=== PATIENT | male | born 1980 | race Caucasian/White ===

== ENCOUNTER 2025-06-19 08:23 | Day surgery (SDC) | payer BC ==
--- NOTE | 2025-06-16 14:16 | ELECTROCARDIOGRAPH REPORT ---
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 CHRISTINE Dykes Measurements Intervals [place] Rate: 69 P: 32 ND: 173 QRS: 41 QRSD: 108 T: 49 QT: 362 QTc: 388 Interpretive Statements Sinus rhythm Electronically Signed On 06-16-2025 16:46:[address] CHRISTINE Dykes Please click the below link to view image of tracing.
[2025-06-16 14:25] LABS: MEAN PLATELET VOLUME 7.9 FL (7.4-10.4); RED CELL DISTRIBUTION WIDTH 13.3 % (11.5-14.5)
[2025-06-16 14:45] LABS: CREATININE 1.12 MG/DL (0.60-1.10); TOTAL CARBON DIOXIDE 31.8 MMOL/L (24-32); eGFR 71 ML/MIN
[~2025-06-19] VITALS: Ht 180.3 cm; Wt 97.4 kg
[2025-06-19] VITALS (12 sets, daily range): BP systolic 130–145; BP diastolic 81–100; PULSE 64–96; RESP 10–18; TEMP 98.1; O2SAT 98–100
[2025-06-19] MEDS: clindamycin-Cleocin 900mg/D5W 50 ML IV ONE (05:30)
[~2025-06-19 08:23] MED LIST: CALC625T31 PO; CETI10TA14 PO; CHOL100025 PO; GENTAMICIN IV ONE; MULTIVITAMIN; NORMAL SALINE IV ONE; SEMA2.4P SQ; [UNRECOGNIZED DRUG - OTHER]
[2025-06-19] MEDS: ringers solution, lacted 1,000 ML IV SCH ×2 (09:01→14:21)
[2025-06-19] MEDS ORDERED: BUPIVAcaine 0.5% inj/PF 60 ML ONE (10:25)
[2025-06-19] MEDS ORDERED: LIDOcaine 1% 30ml preserv. free vial ONE (10:25)
[2025-06-19] MEDS ORDERED: BUPIVACAINE liposomal/PF 13.3 MG/ML 10mL vial IM ONE (10:25)
[2025-06-19] MEDS ORDERED: fentaNYL/PF 50MCG/1 ML 2ML syringe ONE (11:21)
[2025-06-19] MEDS ORDERED: propofol inj 20 ML IV ONE (11:22)
[2025-06-19] MEDS ORDERED: midazolam 1 mg/ML 2ml injection ONE (11:22)
[2025-06-19] MEDS ORDERED: rocuronium 10mg/ml inj IV ONE (11:23)
[2025-06-19] MEDS: BUPIVAcaine 0.5% inj/PF 30 ml vial IJ ONE (12:14)
[2025-06-19] MEDS ORDERED: hydrALAZINE 20mg/ml inj. IV PRN (12:15)
[2025-06-19] MEDS ORDERED: ondansetron/PF 4mg/2ml inj IV PRN (12:15)
[2025-06-19] MEDS ORDERED: morphine 4 MG/ML inj SYRINge IV PRN (12:15)
[2025-06-19] MEDS ORDERED: acetaminophen 1,000mg/100ml IV 100 ML IV PRN (12:15)
[2025-06-19] MEDS ORDERED: HYDROmorphone/PF 0.2 MG/ML SYRINGE IV PRN ×2 (12:15)
[2025-06-19] MEDS ORDERED: labetalol 20mg/4ml (5mg/ml) syringe IV PRN (12:15)
[2025-06-19] MEDS ORDERED: dexamethasone sod phosphate 4mg/ml inj. ONE (12:44)
[2025-06-19] MEDS ORDERED: ondansetron/PF 4mg/2ml inj ONE (12:45)
[2025-06-19] MEDS ORDERED: glycopyrrolate 0.2mg/ml inj ONE (12:47)
--- NOTE | 2025-06-19 13:49 | OPERATIVE REPORT ---
Operative Report Providers to CC CC: JOSEPH RICARDO MD ~ Date of Procedure: Jun 19, 2025 Pre-Operative Diagnosis: Umbilical hernia Post-Operative Diagnosis 5 cm incarcerated umbilical hernia Procedure Performed Robotic assisted, laparoscopic 5 cm incarcerated umbilical hernia repair with mesh Bilateral transversus abdominis plane nerve blocks by injection using 266 mg of Exparel Surgeon: Joseph Ricardo MD FACS [employer] None Anesthesiologist: Mayito Wiley Type of Anesthesia: General Findings: 2 cm ventral hernia with incarcerated omentum 3 cm umbilical hernia with a large amount of incarcerated omentum and massive associated hernia sac Wound class I Complications None Prosthetics\Implants used: 15 cm round diameter coated polyester mesh Estimated Blood Loss: Minimal Specimen Removed: None Description of Procedure: Patient was brought to the operating room and identified by the nursing staff and the attending physician. Patient was placed supine and a general anesthesia was induced. Preoperative antibiotics were given. The abdomen was prepped and draped in the standard sterile fashion. Through a left subcostal stab incision the abdomen was accessed with a Veress needle technique. Abdomen was insufflated without incident. The incision was lengthened to accommodate a 12 mm optical trocar and the abdomen was entered under laparoscopic visualization. The abdomen was surveyed laparoscopically. Omentum was tented up to the anterior abdominal wall and herniated through a fascial defect at the level of the umbilicus. Multiple attempts at reducing this were unsuccessful consistent with incarcerated state. Under laparoscopic visualization, robotic trochars were placed in the left lateral and left lower quadrant. The da Ct robotic arm was docked to the p atient and instruments guided intra-abdominally under laparoscopic visualization. About 25 minutes was spent mobilizing omentum that was incarcerated through two separate fascial defects. Above the umbilicus, there was a 2 cm fascial defect with a moderate amount of herniated and incarcerated omentum. Below this was a 3 cm fascial defect with a massive amount of inca rcerated omentum and very, very large associated hernia sac. I was able to completely mobilize and reduce all of the incarcerated tissue. Fascial defects measured a total of 5 cm in diameter. Fascial edges were freshened. Fascial defect(s) were then reapproximated with running, absorbable, 0V lock suture. Good fascial apposition was obtained without significant tension. Hernia sac was included in the repair to obliterate the space. A coated polyester mesh was then fixed to the anterior abdominal wall with running, absorbable, 2/0, V lock suture. Mesh laid without wrinkles or folds. The mesh measured 15 cm in diameter The da Ct instruments were then removed and the robot undocked from the patient. Bilateral transversus abdominis plane nerve blocks by injection were then placed under laparoscopic visualization using a combination of Marcaine and 266 mg of Exparel. The left subcostal trocar was removed and its fascia closed percutaneously with 0 Vicryl suture under laparoscopic visualization. Remaining trochars were removed after the abdomen was allowed to deflate. Skin was closed at all sites with 4-0 Monocryl sutures and dressed with sterile dressings. Patient was awakened and taken to the postanesthesia care unit in stable condit ion. Counts repoted as correct: Yes JOSEPH RICARDO MD Jun 19, 2025 13:49
[2025-06-19] MEDS: ketorolac trometh 30MG/ML vial 30 MG/ML VIAL IV ONE (14:20)
[2025-06-19] MEDS: oxyCODONE/APAP 5-325mg tablet PO PRN (14:20)
== END 2025-06-19 14:58 | disposition home or self-care (01) ==
LOC: PAS 08:23
PROVIDERS: ATTEND Surgery
DX: K42.0 Umbilical hernia with obstruction, without gangrene (principal); K43.6 Other and unspecified ventral hernia with obstruction, without gangrene; Z79.899 Other long term (current) drug therapy; I10 Essential (primary) hypertension; Z88.0 Allergy status to penicillin; Z86.14 Personal history of Methicillin resistant Staphylococcus aureus infection; Z98.890 Other specified postprocedural states
CPT/HCPCS: 36415; 49594; 64488; 80053; 82948; 85025; 93005; C1713; C1781; J0665; J0666; J1100; J1580; J1885; J2003; J2250; J2405; J2704; J2710; J3010; J3490; J7030; J7120; Z7506; Z7508; Z7512; A4215; A4618